=== PATIENT | female | born 1980 | race Caucasian/White ===

== ENCOUNTER → 2018-02-03 09:10 | Outpatient (CLI) | payer BC, SELFPAY ==
[2018-02-03 12:26] LABS: HIV - WCH Non-Reactive (Nonreactive)
[2018-02-03 13:02] LABS: Chlamydia Trachomatis by PCR Negative (Negative); Neisserai gonorrhoeae by PCR Negative (Negative); Probe Check PASS; Sample Adequacy Control PASS; Specimen Processing Control PASS
[2018-02-04 10:56] LABS: HEPATITIS B SURFACE AG Negative (Negative); Hep C Antibodies <0.1 s/co ratio (0.0-0.9)
[2018-02-07 12:21] LABS: HPV Reflexed? NOT INDICATED
[2018-02-10 01:20] LABS: Rapid Plasmin Reagin (RPR) NONREACTIVE (NONREACTIVE)
== END ==
PROVIDERS: Visit Provider Obstetrics & Gynecology
DX: Z12.4 Encounter for screening for malignant neoplasm of cervix (principal); Z11.3 Encounter for screening for infections with a predominantly sexual mode of transmission
CPT/HCPCS: 36415; 86592; 86703; 86803; 87340; 87491; 87591; 88175; G0145

== ENCOUNTER 2018-04-12 10:53 | Day surgery (SDC) | payer BC, SELFPAY ==
[2018-04-12 11:33] VITALS: BP 112/67; PULSE 85; RESP 18; TEMP 36.6; O2SAT 100; BMI 25.5
[2018-04-12 11:43] LABS: Internal QC Validated? YES +Cl - CLEAR BKGD; Pregnancy, Urine Negative Negative
--- NOTE | 2018-04-12 12:21 | PCM.DC.TUB ---
Discharge Diet: No Restrictions Discharge Activity: May not drive while taking narcotic pain medications., May Shower, May Take a Tub Bath Return to work on:: 04/14/18 May resume sexual activity in: 1 week Additional Activity Instructions:: Ambulate often the next week after surgery. Nothing in the vagina for 5 days. Call your doctor if you observe: Fever of 101 or Higher, Change in Color, Uncontrolled pain Change Dressing in (Days):: 4 Remove Dressing in (days):: 4 Cleanse incision/area with: Soap & Water, Keep Dressing Clean & Dry Additional Instructions: You may take two Aleve OR three Ibuprofen every 8 hr as needed for milder pain. Add the [place] if pain more severe. do not take tylenol in addition to the [place] (contains tylenol). Allergies/Adverse Reactions: Allergies adhesive tape Adverse Reaction (Verified 04/05/18 09:59) redness Medications to take at Discharge Biotin 2,500 mcg PO DAILY 04/05/18 Multivit with Calcium,Iron,Min [Multiple Vitamins For Women] 1 each PO DAILY 04/05/18 Hydrocodone/Acetaminophen [[place] 5-325 Tablet] 1 each PO Q4H PRN PRN 3 Days #10 tablet 04/12/18 The following prescriptions were given: Hydrocodone/Acetaminophen [[place] 5-325 Tablet] 1 each PO Q4H PRN PRN 3 Days #10 tablet PRN Reason: Mod-Severe Pain (4-10/10) Primary Care Physician: Cynthia Stroud MD [Primary Care Provider] - Test Results: Test results from this visit will be discussed in further detail at your follow-up appointment, if applicable. Please Follow Up With: Ginger Monroy MD - [phone] When: follow up appt in office in 2 wk for postop incision check. Proposed Discharge Date: 04/12/18
--- NOTE | 2018-04-12 12:27 | DCINST_ITS ---
Discharge Diet: No Restrictions Discharge Activity: May not drive while taking narcotic pain medications., May Shower, May Take a Tub Bath Return to work on:: 04/14/18 May resume sexual activity in: 1 week Additional Activity Instructions:: Ambulate often the next week after surgery. Nothing in the vagina for 5 days. Call your doctor if you observe: Fever of 101 or Higher, Change in Color, Uncontrolled pain Change Dressing in (Days):: 4 Remove Dressing in (days):: 4 Cleanse incision/area with: Soap & Water, Keep Dressing Clean & Dry Additional Instructions: You may take two Aleve OR three Ibuprofen every 8 hr as needed for milder pain. Add the [place] if pain more severe. do not take tylenol in addition to the [place] (contains tylenol). Allergies/Adverse Reactions: Allergies adhesive tape Adverse Reaction (Verified 04/05/18 09:59) redness Medications to take at Discharge Biotin 2,500 mcg PO DAILY 04/05/18 Multivit with Calcium,Iron,Min [Multiple Vitamins For Women] 1 each PO DAILY Hydrocodone/Acetaminophen [[place] 5-325 Tablet] 1 each PO Q4H PRN PRN 3 Days #10 tablet 04/12/18 The following prescriptions were given: Hydrocodone/Acetaminophen [[place] 5-325 Tablet] 1 each PO Q4H PRN PRN 3 Days #10 tablet PRN Reason: Mod-Severe Pain (4-10/10) Primary Care Physician: Cynthia Stroud MD [Primary Care Provider] - Test Results: Test results from this visit will be discussed in further detail at your follow- up appointment, if applicable. Please Follow Up With: Ginger Monroy MD - [phone] When: follow up appt in office in 2 wk for postop incision check. Proposed Discharge Date: 04/12/18
--- NOTE | 2018-04-12 12:30 | FALS_PTH ---
PATIENT: MARTHA GOMEZ LOC: [facility] [place] U#:[id number] AGE/SX: 37/F ROOM: RE04/12/[address]: Dr. Ginger Monroy MD : 1980 BED: DIS: 04/12/2018 SPEC #: [id number] RECD: 04/12/18 14:00 STATUS: HOWARD FERNANDO #: [id number] ROBINSON: 04/12/18 12:[address]: Ginger Monroy DEPT: SURGICAL PATHOLOGY RECD BY: Rebecca Lam ENTERED: 04/12/18 15:07 SP TYPE: FALL TUBES OTHR DR: Dr. Cynthia Stroud MD Tissues: Fallopian tube Procedures: Surgery Specimen Level II HEADER OPERATION: Laparoscopic salpingectomy PRE-OP DIAGNOSIS: Desires elective sterilization TISSUE SUBMITTED: Bilateral fallopian tubes MICROSCOPIC DIAGNOSIS Bilateral fallopian tubes, salpingectomy: Bilateral fallopian tubes including fimbrial ends, no pathologic diagnosis. SJ:saul 04/13/18 MICROSCOPIC DESCRIPTION Slides are reviewed. GROSS DESCRIPTION Received is one container labeled with the patient's name and designated bilateral fallopian tubes. The specimen consists of fallopian tubes including fimbrial ends measuring 6.5 cm in length and 0.6 cm in diameter. Sections reveal unremarkable cut surfaces. Also present in the container are multiple pieces of tubular tissue including fimbrial ends. One of the pieces measure 2 cm in length and 0.6 cm in diameter. The other pieces including fimbrial end measures in aggregate 3.5 x 2.5 x 0.8 cm. Sections reveal unremarkable cut surfaces. Air Pumper sections are submitted in two cassettes as follows: 1 ? intact fallopian tube, 2 ? fallopian tube received in multiple pieces. / VICENTE:saul 04/12/18 TC:4 [facility]: [id number] x2
[2018-04-12] MEDS: Bupiv/Epi 0.5% Mpf 30 ML Vial (12:39)
--- NOTE | 2018-04-12 13:25 | OP.PCM_ITS ---
Operative Report Date of Procedure: 04/12/18 Date of procedure: 04/12/18 PROCEDURE: Laparoscopic Bilateral Salpingectomy PREOPERATIVE DIAGNOSIS: Sterilization request POSTOPERATIVE diagnosis: Sterilization request Likely fibroid uterus intraabdominal adhesions (filmy) in RLQ. Normal appearing appendix Spots of endometriosis in posterior cul de sac, L ovary. (mild case, minimal adhesions) Surgeon: Ginger Monroy MD Anesthesia: general anesthesia. Jayna Bee CRNA EBL: minimal Complications: None Drains: Red Cast catheter used to drain the bladder prior to initiation of the case Fluids: LR replacement Findings; Globular appearing uterus suggestive of leiomyomata. Fallopian tubes and ovaries are WNL. Filmy adhesions at anterior cul de sac to the R side. (prior C section) Spots of dark powder burn appearing likely endometriosis noted at posterior cul de sac. Spots of likely endometriosis also noted at L ovary. Gross inspection of bowel, omentum. liver edge also WNL. photos were taken of the uterus and ovaries after Bilateral salpingectomy , and of the RUQ / liver edge, Filmy adhesions in RLQ. Appendix. Narrative account: After the risks, benefits, alternatives of procedure had been reviewed with the patient, informed consent was obtained. The patient was taken back to the Operating room with an IV running. she was positioned on the operating table in dorsal supine position, where she was given general anesthesia. Once asleep she was repositioned to the dorsal lithotomy position and prepped and draped in the usual sterile fashion. A red Cast catheter was used to drain the bladder prior to initiating the case. A sponge stick was placed into the vagina to allow manipulation of the uterus and cervix during the case. Attention was then turned to the anterior abdominal wall where 0.25 % Marcaine with epinephrine was instilled at the suprapubic and infraumbilical skin and at a point midway between in the midline. Skin incisions were then created in the midline at the suprapubic skin and at the infraumbilical skin and midway between the two. While maintaining upward traction of the anterior abdominal wall a Veress needle was inserted through the umbilical incision into the peritoneal cavity. There was free drop of saline, low opening pressure and free flow of CO2 noted. Once the intraabdominal pressure had reached 12 mm of mercury the Veress needle was removed and a bladeless 5 mm trocar was placed through infraumbilical skin incision into the peritoneal cavity. Correct placement was confirmed using the scope. Under direct visualization then with the patient in Trendelenburg position, a bladeless 5 mm trocar was inserted in through suprapubic skin incision into the peritoneal cavity and at a point midway between the infraumbilical and suprapubic trocars. The uterus as anteverted and both ovaries and fallopian tubes were WNL. Spots of likely endometriosis were noted at the L ovary and at the posterior cul de sac. The uterus was globular in configuration and firm, likely fibroid uterus. The R fallopian tube was grasped and retracted medially and using a LigaSure device the fallopian tube was excised from the ovary and mesosalpinx. Excellent hemostasis was noted at the excision site. The R fallopian tube was brought through the suprapubic trocar and set aside for later pathology review. In a similar manner the L fallopian tube was grasped and retracted medially and the fallopian tube was excised and removed from the abdominal cavity through the suprapubic trochar. The L fallopian tube was enlarged and brought out in pieces with a grasper with teeth. The Fallopian tubes were sent to pathology. Excellent hemostasis was noted by visualization of the pelvis, ovaries, and remaining mesosalpinx. There was some old blood noted in the L adnexa after the fallopian tube was removed in segments through the suprapubic port. The pelvic and abdomen were suction irrigated, and excellent hemostasis was noted. Photos were taken of the uterus and Bilateral remaining ovaries and of the RUQ and liver edge. the posterior cul de sac, L ovarian endometriosis, and filmy adhesions in the RLQ. Appendix was visualized. At this point the the procedure was terminated. The pneumoperitoneum was reduced and the instruments and trocars were removed from he the anterior abdominal wall skin. The skin incisions were closed with 4-0 Monocryl in a subcuticular fashion. Dermabond and OpSites were applied to the skin. The sponge stick was removed from the vagina. The patient was returned to dorsal supine position. She was awakened from general anesthesia. She was transferred to the recovery room bed in stable condition after tolerating the procedure well. Sponge, lap, needle and instrument counts were correct x two. Medications given preop and intraoperatively included: 10cc of 1/2 % Marcaine with epinephrine --used as a subcutaneous block and Toradol 30 mg IV x one. For a complete listing of medications given preop and intraop , please see the anesthesia record.
[2018-04-12 13:26] VITALS: BP 112/67; BP 114/71; PULSE 104; RESP 16; TEMP 36.8; O2SAT 98
[2018-04-12 13:30] VITALS: BP 110/69; BP 112/67; PULSE 92; RESP 16; O2SAT 100
[2018-04-12 13:45] VITALS: BP 109/67; BP 112/67; PULSE 82; RESP 16; TEMP 36.6; O2SAT 99
[2018-04-12] MEDS: HYDROcodone Bitartrate/Apap 5/325 Tablet PO (14:14)
[2018-04-12 15:08] VITALS: BP 103/76; BP 112/67; PULSE 74; RESP 16; TEMP 37.1; O2SAT 100
== END 2018-04-12 15:09 | disposition home or self-care (01) ==
LOC: SDC 10:56 → AC 10:57
PROVIDERS: Surgery; Family Provider Family Medicine; PCP Family Medicine; Visit Provider Obstetrics & Gynecology
PROC: (CPT 58661; principal; 2018-04-12 12:15)
DX: Z30.2 Encounter for sterilization (principal); K66.0 Peritoneal adhesions (postprocedural) (postinfection); N80.3 Endometriosis of pelvic peritoneum; N80.1 Endometriosis of ovary; Z87.891 Personal history of nicotine dependence
CPT/HCPCS: 58661; 81025; 88302; J7120; J2405

== ENCOUNTER → 2018-05-10 16:56 | Outpatient (CLI) | payer BC, SELFPAY | PROVIDERS: Visit Provider Obstetrics & Gynecology | DX: Z11.3 Encounter for screening for infections with a predominantly sexual mode of transmission (principal) ==

== ENCOUNTER → 2018-06-06 07:52 | Outpatient (CLI) | payer BC, SELFPAY ==
--- NOTE | 2018-06-06 07:54 | BI_ITS ---
MAMMOGRAPHY - BILATERAL SCREENING REASON FOR EXAM: Female, 37 years old. Routine annual screening examination. PERTINENT HISTORY: Mother with breast cancer. Grandmother with breast cancer. TECHNIQUE: Digital bilateral breast chandrika (3D mammographic acquisition) in the CC and MLO projections. 2-D mediolateral oblique (MLO) and craniocaudad (CC) views of both breasts were obtained. CAD: Full Field Digital Mammography with Computer Added Detection was performed. COMPARISON: None. Baseline examination. FINDINGS: Breast Composition: The breasts are heterogeneously dense, which may obscure small masses. There are no dominant masses or suspicious calcifications. No other significant abnormalities are identified. BI/SCREENING MAMM (CAD), BILAT IMPRESSION: Negative screening mammogram. Yearly followup mammogram recommended. (A) ASSESSMENT CATEGORY: BIRADS Category 1: Negative. A letter regarding these results will be sent to the patient by the facility within 30 days. Approximately 10% of breast cancers are not detected by mammography. A normal mammogram should not delay biopsy of a clinically suspicious abnormality. [id number] Electronically Signed: Hans Malave MD at 9:28 EDT Tel [phone], Service support ,
== END ==
PROVIDERS: Family Provider Family Medicine; PCP Family Medicine; Visit Provider Obstetrics & Gynecology
DX: Z12.31 Encounter for screening mammogram for malignant neoplasm of breast (principal)
CPT/HCPCS: 77063; 77067

== ENCOUNTER 2019-04-02 11:30 | Outpatient (RCR) | payer BC, SELFPAY ==
--- NOTE | 2019-03-21 09:22 | HP.OTEVAL ---
Patient's Visit Information MARTHA GOMEZ is a 38 year old F, referred to Occupational Therapy by Brice Gonzalez MD, with a diagnosis of right CTR. Date of Evaluation: 03/21/19 Occupational Therapist: Jaja Elizalde, RICHELLE/Adriana, CHT - Subjective Subjective: This 38 year old female was seen for initial OT eval following a CTR on 03/08/19. pt works at [employer] and states she has had symptoms on and off for about 6 years. pt states she was noticed weakness and was waking up many times a night with numbness/tingling. Pt is 2 weeks s/p and would like to know how she can progress to perform her ADLs and home mtg. tasks without risking the release. - Pain right hand 2 Pain Intensity Range: 4 - ROM Wrist: right 75/60 left 70/75 - Strength Aircraft Engine Cylinder Mechanic: right 25# left 65# Lateral Pinch: right 10 left 12 Tripod Pinch: right 10# left 18# - Sensation Sensation Comments: denies - Quick DASH-Disab of Arm,Shoulder& Hand Quick DASH Score: 18.3325 - Goals Goal:Daily scar massage when approriate: Yes Goal:ROM equal to unaffected hand: Yes Goal:Aircraft Engine Cylinder Mechanic/Pinch strength at least 75% of unaffected hand: Yes Goal:No pain with affected hand use: Yes Goal:Full use of affected hand in daily activities including: Yes Goal:Decrease scar hypersensitivity: Yes - Rehabilitation General Assessment: Pt is 2 weeks s/p from right CTR. pt demo with healing incision, pain and weakness limiting pts ind. with ADLS, IADls and work tasks. PT would benefit in skilled OT services 2-3 visits to ensure ed. and tx of ROM, scar mtg, joint protection, work simplification and PRE. Today pt was ed.on tendon glides, wrist AROM, scar mtg and light returning to light home mtg. tasks. pt to return in 1 - 2 weeks to intiate PRE for HEP pt demo understanding and agree to POC. Rehabilitation Potential: Good - Anticipated Interventions Anticipated Interventions: A/AAROM/PROM, Strengthening, Scar Care, Triggerpoint Release, Desensitization, Modalities, Joint Protection/Energy Conservation, Ergonomic Education, Fine Motor Coord/Seb - Visit Plan Frequency: 1x/Week Duration: 2 Weeks TEXT: Thank you for the opportunity to evaluate your patient. For Medicare and Medicare HMO plans, please review the plan of care and approve it. It will need to be FAXED BACK to us at [phone] for Medicare purposes. Please let me know if there are questions or concerns regarding this plan of care. Physician Signature: Date:
--- NOTE | 2019-08-08 19:04 | HP.OTDCSUM ---
HP - OT D/C Summary It has been my pleasure to treat MARTHA GOMEZ under orders from Brice Gonzalez MD, for the diagnosis of right CTR for a total of 2 visit(s). Please see the following information for a summary of their discharge status. - Objective Objective/Function: right traffic i manager strength 43#. right later pinch 14#. right tripod pinch 12# - Goals Patient Goals: Regain Mobility, Regain Strength, Decrease Pain, Use Hand/Wrist/Arm Normally Again Goal:Daily scar massage when approriate: Yes Goal:ROM equal to unaffected hand: Yes Goal:Instrumentation Fitter/Pinch strength at least 75% of unaffected hand: Yes Goal:No pain with affected hand use: Yes Goal:Full use of affected hand in daily activities including: Yes Goal:Decrease scar hypersensitivity: Yes - D/C Information If there are questions or concerns regarding this patient's occupational therapy, please fell free to call me at [phone]. Thank you for the referral of this patient. Sincerely, Jaja Elizalde, OTR/L, CHT
== END 2019-04-02 19:00 | disposition home or self-care (01) ==
LOC: OT 11:30
PROVIDERS: Family Provider Family Medicine; PCP Family Medicine; Referring Provider Orthopaedic Surgery; Visit Provider Orthopaedic Surgery
DX: G56.01 Carpal tunnel syndrome, right upper limb (principal)
CPT/HCPCS: 97035; 97110; 97140; 97165

== ENCOUNTER → 2019-05-02 09:48 | Outpatient (CLI) | payer BC, SELFPAY ==
--- NOTE | 2019-05-02 09:50 | RAD_ITS ---
STUDY: X-RAY - THORACIC SPINE REASON FOR EXAM: Female, 38 years old. Back pain TECHNIQUE: 3 view(s) of the thoracic spine were obtained. COMPARISON: None. FINDINGS: Normal kyphosis of the thoracic spine. There is mild levo scoliosis. Normal thoracic vertebrae and endplates. Normal disc space heights. The soft tissue structures are unremarkable. RAD/Thoracic Spine 3 Views IMPRESSION: Mild levoscoliosis or splinting possibly due to muscle spasm. No evidence for acute fracture or other significant bony pathology. Electronically Signed: Emil Teague MD at 17:17 EDT , Service support ,
== END ==
PROVIDERS: Family Provider Family Medicine; PCP Family Medicine; Referring Provider Family Medicine; Visit Provider Family Medicine
DX: M54.6 Pain in thoracic spine (principal)
CPT/HCPCS: 72072

== ENCOUNTER 2019-06-07 11:30 | Outpatient (RCR) | payer BC, SELFPAY ==
--- NOTE | 2019-05-15 12:10 | HP.PTEVAL_ITS ---
Patient's Visit Information MARTHA GOMEZ is a 38 year old F referred to Physical Therapy by Cynthia Stroud MD with a diagnosis of BACK PAIN. Date of Evaluation: 05/15/19 Physical Therapist: Angie Swift, PT, Cert MDT - Visit Plan Frequency: 2x /Week Duration: 6 Weeks Plan: MANUAL AND/OR MECHANICAL CERVCIAL TRACTION INDICATED. POSTURE CORRECTION/STRENGTHENING, INSTRUCTION IN APPROPRIATE BODY MECHANICS AND ACTIVITY MODIFICATIONS. LILIANE UE ROM, STRETCHING AND STRENGTHENING. INCORPORATE FOAM ROLLER. HEP INSTRUCTION. 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 LIKES TO DO YARDWORK AND GARDENING. Disability: NO. Present symptoms: CONSTANT THORACIC BACK PAIN AND BURNING WITH INTERMITTENT PINS AND NEEDS AT THE BASE OF NECK. Present since: ABOUT 10 YEARS. Pain Scale: WORST 9/10, LEAST 1/10. Currently: 3/10. WORSENING. Commenced as a result of: NO APPARENT REASON. Symptoms at onset: ? Worse: I DON'T KNOW. Better: FOAM ROLLING HELPS A LITTLE BIT VERY TEMPRARY. IBUPROFEN A LITTLE BIT. SOMETIMES 10 IBUPROFEN DO NOT HELP. Disturbed sleep: YES. Previous history/Previous treatment: CHIRO X 4 VIITS - NO LASTING RELIEF. NO TIERNEY'S. NO BACK OR NECK SURGERY. NO PT FOR BACK OR NECK. MUSCLE RELAXERS. HAS BEEN DOING MASSAGE THERAPY ABOUT ONCE A MONTH FOR ABOUT A YEAR NOW. Coughing/sneezing/straining: NEGATIVE. Gait: NORMAL. DiZZINESS - NEGATIVE. TINNITIS - NEGATIVE. NAUSEA - YES. SHORTNESS OF BREATH - NO. DIFFICULTY SWOLLOWING - NO. Accidents: NO. Unexplained weight loss: NO. Imaging: BACK X-RAY - NORMAL. PMH: UNREMARKABLE. Recent major surgery: CTS FEBRUARY 2019 RIGHT. OTHER: PATIENT REPORTS DR. STROUD THINKS HER PAIN IS MUSCULAR. PATIENT REPORTS SHE IS ACTIVE. 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 DOESN'T SIT A LOT OUTSIDE OF WORK. CAN'T FIND A PATTERN TO THE PAIN. PATIENT REPORTS THE PAIN DOESN'T USUALLY STOP HER FROM DOING ANYTHING BUT THE PAIN DOES GET BAD. - Objective Sitting/Standing Posture: POOR. FORWARD HEAD AND ROUNDED SHOULDERS. NO TORTICOLLIS. Active Correction of posture: NE. Other Observations: INDEP GAIT AND TRANSFERS. SLOUCHING THROUGHOUT SUBJECT PORTION OF EVAL. Motor deficit: RIGHT FORKLIFT SUPERVISOR 45 LBS, LEFT 55 LBS. Sensory deficit: NO. ROM deficit: LILIANE UE'S WFL. Reflexes: NT. Dural Signs: LILIANE UE'S NEGATIVE. Cervical Mvmt Loss: Flex: NIL. Pro: NIL. Ext: MIN. Ret: MIN. RSB: MIN. LSB: MIN. R Rot: MIN. L Rot: MIN. THORACIC MVMT LOSS: RIGHT ROT - MIN. LEFT ROT - MIN. PATIENT REPORTS INCREASED MID BACK PAIN WITH LILIANE THORACI ROTATION TESTING AND REPORTS THIS IS THE AREA WHERE THE PAIN IS THAT SHE IS HERE FOR TODAY. PATIENT REPORTS INCREASED RIGHT NECK TIGHTNESS WITH RIGHT ROTATION AND LEFT SB. Postural strength: POOR. Palpation: PATIENT HAS INCREASED MUSCLE TONE LILIANE TRAP REGIONS WITH MULTIPLE TRIGGER POINTS RIGHT > LEFT. NO ACUTE CERVICAL OR THORACIC SPINAL TENDERNESS. OTHER: SEATED CERVICAL DISTRACTION TESTING RESULTS IN DECREASED PAIN. - Goals Goal 1:: DECREASE C/O NECK AND MID BACK PAIN Goal Time Frame: 4-6 Weeks Goal 2:: IMPROVE STANDING, TRAVEL, WORK, HOMEMAKING AND SLEEP FUNCTION Goal Time Frame: 4-6 Weeks Goal 3:: INSTRUCT IN PROPHYLAXIS Goal Time Frame: 4-6 Weeks - Rehabilitation Potential Rehabilitation Potential: Fair - Anticipated Interventions Patient/Client Instruction: Educate patient on: Condition, Plan of Care, Risk Factors, Benefits of Fitness Program For the Purpose of:: To improve self management Therapeutic Exercise to Include: Strength training, Body mechanics, Postural training, Flexibilty training, Scapular Strength/Stabilization For the Purpose of:: To decrease pain, To increase ROM, To improve muscle performance and motor function, To increase tolerance to activity/condition/position, To improve ability of physical actions for home/com munity/work/leisure Manual Therapy Techniques to Include: Soft tissue mobilization For the Purpose of:: To decrease pain, To increase ROM, To improve nutrient delivery to tissue TENS: Yes IF ES: Yes Cryotherapy (ice pack, ice massage): Yes Thermo therapy (hot pack): Yes Ultrasound (thermal/non thermal): Yes Intermittent cervical traction: Yes For the Purpose of:: To decrease pain, To decrease swelling/inflammation, To increase ROM Thank you for the opportunity to evaluate your patient. For Medicare and Medicare HMO plans, please review the plan of care and approve it. It will need to be FAXED BACK to us at [phone] for Medicare purposes. For Medicare only, by signing this I certify the plan of care. Please let me know if there are questions or concerns regarding this plan of care. Physician Signature: Date:
--- NOTE | 2019-06-18 10:46 | HP.PT.NRP ---
HP - Discharge Summary (1) - Patient Information MARTHA GOMEZ was seen in my office for initial evaluation on 05/15/19. The following Plan of Care was established for this patient: Initial Frequency: 2x /Week Initial Duration: 6 Weeks - Anticipated Interventions Patient/Client Instruction: Educate patient on: Condition, Plan of Care, Risk Factors, Benefits of Fitness Program For the Purpose of:: To improve self management Therapeutic Exercise to Include: Strength training, Body mechanics, Postural training, Flexibilty training, Scapular Strength/Stabilization For the Purpose of:: To decrease pain, To increase ROM, To improve muscle performance and motor function, To increase tolerance to activity/condition/position, To improve ability of physical actions for home/community/work/leisure Manual Therapy Techniques to Include: Soft tissue mobilization For the Purpose of:: To decrease pain, To increase ROM, To improve nutrient delivery to tissue TENS: Yes IF ES: Yes Cryotherapy (ice pack, ice massage): Yes Thermo therapy (hot pack): Yes Ultrasound (thermal/non thermal): Yes Intermittent cervical traction: Yes For the Purpose of:: To decrease pain, To decrease swelling/inflammation, To increase ROM This patient was last seen in our office . Pertinent comments regarding their Physical therapy will appear below: I received a note stating patient cancelled all remaining edison'ts because she is doing good. She is appropriate to return to MD for further follow-up as needed. At this point I will be discontinuing this patient from physical therapy. I would be happy to see this patient again in the future if found appropriate by the physician. Thank you! Angie Swift, PT, Cert MDT
== END 2019-06-07 19:00 | disposition home or self-care (01) ==
LOC: PT 11:30
PROVIDERS: Family Provider Family Medicine; PCP Family Medicine; Referring Provider Family Medicine; Visit Provider Family Medicine
DX: M54.6 Pain in thoracic spine (principal)
CPT/HCPCS: 97035; 97110; 97161; 97530

== ENCOUNTER → 2019-11-24 08:35 | Outpatient (CLI) | payer BC, SELFPAY ==
--- NOTE | 2019-11-24 09:11 | US_ITS ---
HISTORY: EARLY SATIETY TECHNIQUE: Cruz scale and color doppler imaging was performed of the pancreas, liver, and gallbladder. COMPARISON: None FINDINGS: # of images incl. paperwork: 119 Liver is normal in size and appearance. Multiple gallstones are present within the gallbladder lumen. The gallbladder is filled with gallstones making a wall echo shadow triad. Where the gallbladder wall was measured at 11 mm was a fold. My measurement of the gallbladder wall thickness is 4 mm Gallbladder wall measures by the reinspector at 11 mm. Common bile duct measures 6 mm. Upon insonation of the gallbladder the patient did not experience pain Visualized pancreas is normal in appearance. Right kidney is normal in size and appearance. Visualized abdominal aorta has normal caliber. IVC is patent. Hepatopedal flow is present within the central portal vein. US/Abdomen Limited IMPRESSION: Gallbladder filled with gallstones. Gallbladder wall thickening. Findings are consistent with but not specific for, acute cholecystitis. at [id number] Reported and signed by: Kike Smith MD Electronically Signed: Kike Smith MD at 6:07 EDT Tel , Service support ,
== END ==
PROVIDERS: PCP Family Medicine; Referring Provider Family Medicine; Visit Provider Family Medicine
DX: R68.81 Early satiety (principal)
CPT/HCPCS: 76705

== ENCOUNTER → 2019-11-27 13:51 | Outpatient (CLI) | payer BC, SELFPAY ==
[2019-11-27 13:31] VITALS: BMI 25.2
[2019-11-27 14:20] LABS: Absolute Lymphocyte Count 1.16 X10^3/uL (0.83-4.51); Absolute Neutrophil Count 5.6 X10^3/uL (2.0-7.7); Basophil# 0.02 X10^3/uL; Basophil% 0.3 % (0-1); Eosinophil# 0.09 X10^3/uL; Eosinophils% 1.2 % (0-5); Hematocrit 41.1 % (37-47); Lymphocyte # 1.16 X10^3/ul (4.0); Lymphocyte % 15.8 % (19-41); Mean Corp Hgb Conc 34.1 g/dL (32-36); Mean Corpuscular Hgb 30.8 pg (27.0-32.0); Mean Corpuscular Volume 90.5 fL (81-99); Monocyte# 0.51 X10^3/uL; Monocyte% 6.9 % (0-10); NRBC Flagged by Analyzer 0 % (0-5); Neutrophil # 5.56 X10^3/uL (2.7-7.7); Neutrophil % 75.5 % (47-70); Platelet Count 220 K/mm3 (150-450); RBC Distribution Width CV 11.6 % (11.6-14.6); RBC Distribution Width SD 38.5 fl (35.1-43.9); Red Blood Count 4.54 M/mm3 (4.2-5.4); White Blood Count 7.4 K/mm3 (4.4-11.0)
[2019-11-27 14:37] LABS: AST(SGOT) 14 U/L (15-37); Alanine Aminotransfer ALT/SGPT 19 U/L (13-56); Albumin, Serum 3.7 g/dL (3.2-5.0); Alkaline Phosphatase 63 U/L (45-117); Anion Gap 4 (5-15); BUN 11 mg/dL (7-18); BUN/Creat Ratio 18.9 RATIO (10-20); Calcium,Total 8.4 mg/dL (8.5-10.1); Chloride 108 mmol/L (98-107); Creatinine, Serum 0.58 mg/dL (0.55-1.02); EST Glomerular Filtration Rate 122 mL/min (>60); Est Glom Filt Rate - Afr Amer 148 mL/min (>60); Globulin 3.7 g/dL (2.2-4.2); Glucose 108 mg/dL (74-106); Potassium 3.8 mmol/L (3.5-5.1); Protein, Total 7.4 g/dL (6.4-8.2); Sodium Level 141 mmol/L (136-145)
== END ==
PROVIDERS: PCP Family Medicine; Referring Provider Surgery; Visit Provider Surgery
DX: K80.20 Calculus of gallbladder without cholecystitis without obstruction (principal)
CPT/HCPCS: 36415; 80053; 85025

== ENCOUNTER → 2020-05-21 11:55 | Outpatient (CLI) | payer BC, SELFPAY ==
[2019-11-27 13:31] VITALS: BMI 25.2
[2020-05-13 13:42] VITALS: BMI 25.5
--- NOTE | 2020-05-21 11:57 | BI_ITS ---
MAMMOGRAPHY - BILATERAL SCREENING REASON FOR EXAM: Female, 39 years old. Routine annual screening examination. PERTINENT HISTORY: Mother with breast cancer. Grandmother with breast cancer. Aunt with breast cancer. TECHNIQUE: Digital bilateral breast gareth (3D mammographic acquisition) in the CC and MLO projections. 2-D mediolateral oblique (MLO) and craniocaudad (CC) views of both breasts were obtained. CAD: Full Field Digital Mammography with Computer Added Detection was performed. COMPARISON: Comparison is made with prior examination dated 06/06/2018. FINDINGS: Breast Composition: The breasts are heterogeneously dense, which may obscure small masses. There are no dominant masses or suspicious calcifications. No other significant abnormalities are identified. There has been no significant change since the prior study. BI/SCREEN MAMM (CAD) W/GARETH BILAT IMPRESSION: Stable bilateral screening mammogram. Yearly follow-up mammogram recommended. (A) ASSESSMENT CATEGORY: BIRADS Category 1: Negative. A letter regarding these results will be sent to the patient by the facility within 30 days. Approximately 10% of breast cancers are not detected by mammography. A normal mammogram should not delay biopsy of a clinically suspicious abnormality. [id number] Electronically Signed: Hans Malave, at 12:58 EDT , Service support ,
== END ==
PROVIDERS: PCP Family Medicine; Referring Provider Student in an Organized Health Care Education/Training Program; Visit Provider Student in an Organized Health Care Education/Training Program
DX: Z12.31 Encounter for screening mammogram for malignant neoplasm of breast (principal); Z80.3 Family history of malignant neoplasm of breast
CPT/HCPCS: 77063; 77067

== ENCOUNTER 2020-05-23 07:53 | Day surgery (SDC) | payer BC, SELFPAY ==
--- NOTE | 2020-05-13 02:09 | HP_ITS ---
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: No Is patient in pain?: Yes (abdominal pain) Allergies azithromycin [From Zithromax Z-Michael] Allergy (Unknown, Verified 05/13/20 13:39) Unknown chromium Allergy (Unknown, Verified 05/13/20 13:39) Unknown sulfamethoxazole [From Bactrim] Allergy (Unknown, Verified 05/13/20 13:39) Unknown trimethoprim [From Bactrim] Allergy (Unknown, Verified 05/13/20 13:39) Unknown adhesive tape Adverse Reaction (Verified 05/13/20 13:39) redness Medications amoxicillin 500 mg capsule 500 mg PO .prn cap 05/13/20 [History Confirmed 05/13/20] biotin 1 mg capsule 1 mg PO DAILY 05/13/20 [History Confirmed 05/13/20] ibuprofen 200 mg capsule 200 mg PO Q6H PRN 05/13/20 [History Confirmed 05/13/20] multivitamin 1 tab PO DAILY 05/13/20 [History Confirmed 05/13/20] PFSH Medical History Nausea (Acute) Epigastric abdominal pain (Acute) Hemorrhoids (Acute) Anemia (Acute) Bloating (Acute) Abdominal pain (Acute) Heart murmur (Acute) Surgical History Hx of wisdom tooth extraction (Acute) History of (Acute) Hx of bilateral salpingectomy (Acute) Family History Mother Breast cancer Hypertension Social History (Updated 05/13/20 @ 14:[address] Perico Harris MD) Smoking Status: Former smoker second hand exposure: No alcohol intake: never substance use type: does not use caffeine: Yes what type of physical activity do you participate in: none frequency: does not exercise HPI HPI HPI: MARTHA GOMEZ, is a 39 F who presents to the office today for HPI HPI Surgical H&P: Yes HPI: MARTHA GOMEZ, is a 39 F who presents to the office today for abdominal pain. The patient has abdominal pain in her upper abdomen radiating to the back. She also feels ill after eating certain foods. She had her gallbladder evaluated back in November but did not have surgery at that time due to social reasons. The patient had gallstones at that time. Patient is not having any fevers or chills. Patient has no pain in between meals. Patient does not have any radiation of pain. There are no alleviating factors. ROS General General: Yes appetite (decreased); no weight change Gastro Gastrointestinal: Yes abdominal pain, Yes nausea or vomiting (no vomiting), No diarrhea, No constipation (hx of --goes about QOD now), No blood in stool, No acid reflux, Yes hemorrhoids, No ulcers, Yes gallbladder problem, No black,tarry stools Exam Const General: cooperative Orientation: alert, oriented x3 HENMT Head: normal to inspection Ears: hearing grossly normal bilaterally Eyes General: appearance normal, both eyes and all related structures Visual Higginbotham: normal visual higginbotham by confrontation Neck Neck: normal visual inspection Chest Chest palpation & inspection: normal inspection of the chest Resp Effort & Inspection: normal respiratory effort Auscultation: clear to auscultation bilaterally Cardio Rate: regular rate Rhythm: regular rhythm GI Inspection: non-distended Palpation: soft, nontender Musc Cervical Spine: normal cervical lordosis, cervical ROM normal Skin General: no rashes or lesions noted Neuro General: alert, oriented x3 Cranial Nerves: CN's II-XI intact bilaterally Cognition: normal cognition Extrem General: normal to inspection, full ROM Psych Appearance: grossly normal Affect: normal affect Assessment & Plan Problems 1. Calculus of gallbladder without cholecystitis without obstruction K80.20 Plan The patient has upper abdominal pain radiating to the back. The patient has ultrasound which shows copious gallstones in the gallbladder. I recommended laparoscopic cholecystectomy to the patient. I discussed the procedure in detail with the patient. I discussed the risks, benefits, and alternatives of the procedure. I discussed the risks including but not limited to bleeding, infection, injury to surrounding organs such as the liver, bile duct, bowels. I did discuss the possibility of having to convert to an open procedure as well as the possibility that if any injuries occurred this may necessitate further surgery at a tertiary care center. We discussed the current risks associated with COVID-19. While it is understood that there is a community spread of COVID-19, the risk of liyah COVID-19 while at [facility] ([facility]) is very low; however, the risk cannot be completely mitigated because of the community spread of the disease. We discussed in detail the risk of exposure to and/or potential harm posed by the COVID-19 virus with having a surgery/procedure at this time versus the risk of delaying the surgery/procedure. It is not possible to know either the risk of delaying the surgery or procedure or chance of getting an infection with perfect accuracy, but a joint decision was made to proceed at this time with the scheduled surgery/procedure as indicated on the consent form. Patient was notified that we will need to comply with any screening or testing [facility] wishes to perform or that surgery may be delayed for any positive results. Perico Harris MD Pager: [facility] [address] [place] [address], [address] [place] [address] Office: Coding Level of Care Code Off vis,est,level 4 Diagnoses Calculus of gallbladder without cholecystitis without obstruction K80.20 ??Cholelithiasis location: gallbladder ??Cholecystitis presence: without cholecystitis ??Biliary obstruction: without biliary obstruction Time Spent (min) 45 05/13/20 1410 <Electronically signed by Perico meeks MD> Date _ Perico Harris MD I have re-examined the patient. There are no clinical changes since date of exam.
[2020-05-13 13:42] VITALS: BMI 25.5
--- NOTE | 2020-05-15 11:44 | EKG12_ITS ---
Test Reason : PREOP Blood Pressure : / mmHG Vent. Rate : 072 BPM Atrial Rate : 072 BPM P-R Int : 150 ms QRS Dur : 090 ms QT Int : 386 ms P-R-T Axes : 063 037 053 degrees QTc Int : 422 ms Normal sinus rhythm with sinus arrhythmia Normal ECG Confirmed by SANDOR LORENZ, WERO ([id number]), web editor ANNIE CHRISTIANSEN ([id number]) on 05/16/2020 11:37:12 A M Referred By: Perico Harris Confirmed By:RIGOBERTO PATTEN MD
[2020-05-23] VITALS (10 sets, daily range): BP systolic 102–137; BP diastolic 62–82; PULSE 79–103; RESP 14–16; TEMP 36.8–37.1; O2SAT 92–100; BMI 26.4
[2020-05-23] MEDS: Lactated Ringers 1,000 ML 100 ML IV ×2 (08:38→10:30)
[2020-05-23] MEDS: Cefotetan 2 GM in 0.9% NS 100 ML IV (09:12)
--- NOTE | 2020-05-23 09:30 | GALL_PTH ---
PATIENT: MARTHA GOMEZ [place] [facility] [id number] AGE/SX: 39/F ROOM: RE05/23/[address]: Dr. Perico Harris MD : 1980 BED: DIS: 05/23/2020 SPEC #: [id number] RECD: 05/23/20 12:12 STATUS: HOWARD FERNANDO #: [id number] ROBINSON: 05/23/20 09:[address]: Perico Harris DEPT: SURGICAL PATHOLOGY RECD BY: Kan Wan ENTERED: 05/23/20 13:02 SP TYPE: YUNIOR PONCE DR: Dr. Cynthia Stroud MD Tissues: Gallbladder, NOS Procedures: Surgery Specimen Level III HEADER OPERATION: Laparoscopic cholecystectomy with IOC PRE-OP DIAGNOSIS: Calculus of gallbladder TISSUE SUBMITTED: Gallbladder MICROSCOPIC DIAGNOSIS Gallbladder, cholecystectomy: Chronic cholecystitis and cholelithiasis. Benign pericystic lymph node. AM:saul 05/27/20 MICROSCOPIC DESCRIPTION Slides are reviewed. GROSS DESCRIPTION Received is one container labeled with the patient's name and designated gallbladder. The specimen consists of a previously, partially opened gallbladder measuring 10.5 cm in length and up to 3 cm in diameter. The external surface is pink-silva, smooth and glistening for the most part. Focally it is granular, hemorrhagic and contains cautery artifact. The gallbladder contains green-yellow mucoid bile. Present in the container and also in the gallbladder are multiple, multifaceted greenish-yellow to brown stones and stone fragments measuring in aggregate 7 x 7 x 2 cm and 0.1 to 2 cm in greatest dimension. The mucosa is bile-stained and without any mass lesions. The gallbladder wall measures up to 0.4 cm in thickness. Also present close to cystic duct is a silva-pink, ovoid nodule, a possible lymph node, measuring 0.8 cm in greatest dimension. Pipe Roller sections from the gallbladder and the cystic duct including the entire nodule, a possible lymph node, are submitted in one cassette. / SJ:saul 05/23/20 TC:3 CPT: 36450
--- NOTE | 2020-05-23 09:35 | RAD_ITS ---
STUDY: INTRAOPERATIVE CHOLANGIOGRAM. REASON FOR EXAM: Female, 39 years old. PAIN FLUOROSCOPY TIME (if supplied): ( 21.5 seconds ) minutes/seconds TECHNIQUE: Intraoperative collagen was performed by the surgeon. A cine loop of 126 images were submitted. COMPARISON: None. FINDINGS: The intrahepatic and extrahepatic biliary ducts are unremarkable. No intraluminal filling defect is seen. There is free flow of contrast into the duodenum. RAD/Cholangiogram/ O R,Initial IMPRESSION: Unremarkable intraoperative cholangiogram. Electronically Signed: Hans Malave, at 10:44 EDT , Service support ,
[2020-05-23] MEDS: Bupiv/Epi 0.25% 30 ML Vial (10:17)
--- NOTE | 2020-05-23 10:44 | PCM.OPRPT ---
Problem List (1) Cholelithiasis Status: Acute Qualifiers: Cholelithiasis location: gallbladder Cholecystitis presence: without cholecystitis Biliary obstruction: without biliary obstruction Qualified Code(s): K80.20 - Calculus of gallbladder without cholecystitis without obstruction Report of Operation Date of Procedure: 05/23/20 Pre-Operative Diagnosis: Cholelithiasis with biliary colic Post-Operative Diagnosis: Same Surgery/Procedure Performed:: Laparoscopic cholecystectomy with cholangiogram Specimen's removed: Gallbladder and contents Description of Procedure: After obtaining informed consent patient was brought back to the operating room. General anesthesia was induced. The abdomen was prepped and draped in usual sterile fashion. A small midline incision was made superior to the umbilicus and deepened to the level of fascia. The fascia was elevated and incised. Next the peritoneum was elevated and incised in the same fashion. Finger sweep was performed and the Avila trocar was placed into the abdomen. The balloon was inflated. The abdomen was inflated to 15 mmHg. Next a camera was introduced into the abdomen and the abdomen was inspected. Next under direct visualization three 5-mm ports were placed one subxiphoid and 2 subcostal. Next the gallbladder was elevated and retracted toward the right shoulder. The peritoneum was stripped from the gallbladder. The infundibulum was located and retracted laterally. Next the triangle of Calot was dissected and the cystic duct and cystic artery were identified. Cholangiograms were performed. The Barone clamp was used to clamp across the infundibulum and the catheter needle was inserted into the gallbladder. I was unable to get good flushing with the Barone catheter and the clamp was removed. Next a Ranfac catheter was selected and a small keyana was made in the skin in the right upper quadrant. The Ranfac catheter was placed into the abdomen. The proximal cystic duct was clipped and a small keyana was made the cystic duct. The catheter was then placed into the cystic duct and clip was placed over it. Under fluoroscopy contrast was instilled into the gallbladder and the common duct, cystic duct as well as proximal hepatic ducts were identified. There was good filling of the duodenum. There were no filling defects noted in the common bile duct. The cystic duct was very short. The clip was removed and the Ranfac catheter was removed from the cystic duct. Three hemolock clips were placed across the cystic duct. The cystic duct was then divided leaving 2 clips on the stump. The cystic artery was clipped and divided in the same fashion. The hook cautery was then used to take the gallbladder off of the gallbladder bed. Hemostasis was obtained. Gallbladder fossa was irrigated and no active bleeding or bile leakage was noted. Next the camera was introduced in the subxiphoid port. An Endopouch bag was placed through the umbilical port and the gallbladder was placed into it. The gallbladder was then removed through the umbilical incision. The camera was then reinserted through the umbilical port. The gallbladder fossa was inspected once more and noted to be hemostatic with no leaking bile. The abdomen was suctioned dry. The 5 mm ports were removed under direct visualization. The umbilical port was then removed and the air was removed from the abdomen. Next using an 0 Vicryl suture the umbilical fascia was closed in a ucrrcv-ox-motcy fashion. The umbilical port site was irrigated local anesthetic was administered to all the incisions. All the incisions were closed with interrupted subcuticular 4-0 Monocryl sutures followed by Steri-Strips and dressings. The patient was awoken and taken to PACU in stable condition. - Admit VTE Documentation VTE Mechan Device Prophylaxis: SCD's
--- NOTE | 2020-05-23 10:46 | DCINST_ITS ---
Discharge Diet: Light diet - advance as tolerated Discharge Activity: Return to Normal Activity, May Not Drive - for 2-3 days or while taking narcotic pain medicataions., - - Do not drive, work heavy equipment or sign legal documents for 24 hours. May shower in (days): 1 - with the bandage in place. Lifting Restrictions: 20 lbs for 2 weeks Additional Activity Instructions:: Pain medication may cause nausea. You should typically eat light foods as you take your pain medications. Pain medication may also cause constipation. If this is a problem for you, please discuss with your doctor. Call your doctor if your incision/area has: Continuous Slow Oozing, Sudden Increased Bleeding, Increased Pain/ Swelling, Increased Redness, Foul Smelling Discharge, Fever of 101 or Higher Call your doctor if you observe: Fever of 101 or Higher Suture Line Care: Avoid Pulling/Pushing, Avoid Pinching/Bending Additional Dressing/Incision Instructions:: Leave operative bandaids on for 2 days. When you remove dressing, leave Steri-Strips on until your follow-up appointment, or until the Steri-Strips fall off on their own. Allergies/Adverse Reactions: Allergies azithromycin [From Zithromax Z-Michael] Allergy (Unknown, Verified 05/23/20 08:15) Unknown chromium Allergy (Unknown, Verified 05/23/20 08:15) Unknown sulfamethoxazole [From Bactrim] Allergy (Unknown, Verified 05/23/20 08:15) Unknown trimethoprim [From Bactrim] Allergy (Unknown, Verified 05/23/20 08:15) Unknown adhesive tape Adverse Reaction (Verified 05/23/20 08:15) redness Medications to take at Discharge amoxicillin 500 mg capsule 500 mg PO .prn PRN cap 05/13/20 biotin 1 mg capsule 1 mg PO DAILY 05/13/20 ibuprofen 200 mg capsule 200 mg PO Q6H PRN 05/13/20 Oxycodone HCl/Acetaminophen [Percocet 5-325 mg Tablet] 1 - 2 tab PO Q6H PRN 5 Days #20 tablet 05/23/20 The following prescriptions were given: Oxycodone HCl/Acetaminophen [Percocet 5-325 mg Tablet] 1 - 2 tab PO Q6H PRN 5 Days #20 tablet PRN Reason: Pain Score 4-10/10 Transmission Status: Sent to [facility] Test Results: Test results from this visit will be discussed in further detail at your follow- up appointment, if applicable. Please Follow Up With: Perico Harris MD When: Please call to schedule 2 week follow up appointment. [phone]
== END 2020-05-23 14:05 | disposition home or self-care (01) ==
LOC: SDC 07:56 → AC 07:56
PROVIDERS: Anesthesiology; PCP Family Medicine; Referring Provider Surgery; Visit Provider Surgery
PROC: (CPT 47610; principal; 2020-05-23 09:10)
DX: K80.10 Calculus of gallbladder with chronic cholecystitis without obstruction (principal); Z11.59 Encounter for screening for other viral diseases; Z87.891 Personal history of nicotine dependence
CPT/HCPCS: 00790; 47563; 74300; 76000; 87635; 88304; 93005; 94799; J7120; J2405; U0003

== ENCOUNTER → 2021-01-05 | Outpatient (CLI) | payer OTHER, SELFPAY ==
[2020-05-23 08:18] VITALS: BMI 26.4
[2021-01-08 16:23] LABS: HPV APTIMA, High Risk Negative (Negative)
== END | disposition home or self-care (01) ==
PROVIDERS: PCP Family Medicine; Visit Provider Student in an Organized Health Care Education/Training Program
DX: Z12.4 Encounter for screening for malignant neoplasm of cervix (principal)
CPT/HCPCS: 87624; 88175; G0145

== ENCOUNTER → 2021-06-30 12:01 | Outpatient (CLI) | payer OTHER, SELFPAY ==
--- NOTE | 2021-06-30 12:12 | BI_ITS ---
MAMMOGRAPHY - BILATERAL SCREENING REASON FOR EXAM: Female, 40 years old. Routine annual screening examination. PERTINENT HISTORY: Mother with breast cancer. Grandmother with breast cancer. Aunt with breast cancer. TECHNIQUE: Digital bilateral breast gareth (3D mammographic acquisition) in the CC and MLO projections. 2-D mediolateral oblique (MLO) and craniocaudad (CC) views of both breasts were obtained. CAD: Full Field Digital Mammography with Computer Added Detection was performed. COMPARISON: Comparison is made with prior examination dated 05/21/2020 and 06/06/2018. FINDINGS: Breast Composition: The breasts are heterogeneously dense, which may obscure small masses. There are no dominant masses or suspicious calcifications. Stable small bilateral axillary lymph nodes. No other significant abnormalities are identified. There has been no significant change since the prior study. BI/SCRN MAMM (CAD)W/GARETH BILAT IMPRESSION: Stable bilateral screening mammogram. Yearly follow-up mammogram recommended. (A) ASSESSMENT CATEGORY: BIRADS Category 2: Benign. A letter regarding these results will be sent to the patient by the facility within 30 days. Approximately 10% of breast cancers are not detected by mammography. A normal mammogram should not delay biopsy of a clinically suspicious abnormality. [id number] Electronically Signed: Hans Malave MD at 13:20 EDT , Service support ,
== END ==
PROVIDERS: PCP Family Medicine; Referring Provider Student in an Organized Health Care Education/Training Program; Visit Provider Student in an Organized Health Care Education/Training Program
DX: Z12.31 Encounter for screening mammogram for malignant neoplasm of breast (principal); Z80.3 Family history of malignant neoplasm of breast
CPT/HCPCS: 77063; 77067

== ENCOUNTER → 2021-07-20 11:44 | Outpatient (CLI) | payer OTHER, SELFPAY ==
[2021-07-20 13:49] LABS: Estradiol 154.6 pg/mL; Follicle Stimulating Hormone 5.8 mIU/mL; Thyroid Stim Hormone (TSH) 1.08 uIU/mL (0.358-3.74)
[2021-07-22 02:07] LABS: DHEA Sulfate 89.3 ug/dL (57.3-279.2)
[2021-07-22 13:36] LABS: Testosterone Free 0.5 pg/mL (0.0-4.2)
== END ==
PROVIDERS: PCP Family Medicine; Visit Provider Student in an Organized Health Care Education/Training Program
DX: N95.1 Menopausal and female climacteric states (principal)
CPT/HCPCS: 36415; 82627; 82670; 83001; 83002; 84402; 84443; 82626

== ENCOUNTER 2022-07-01 11:14 | Day surgery (SDC) | payer BC, SELFPAY ==
--- NOTE | 2022-06-28 07:59 | PCM.HP.BLA ---
History and Physical Date of Admission: 07/01/22 Pre-Op History and Physical ? HPI: The patient is a 41 year old female presenting for pre-operative visit. She is scheduled for hysteroscopy, Sherlyn Ablation, for AUB on 07/01/22. Procedure discussed along with risks, benefits and complications. Other alternatives discussed for management. Consent form signed? Yes. ? ? PAST MEDICAL HISTORY PAST MEDICAL HISTORY Diagnosis Date ? Endometriosis ? ? ? PAST SURGICAL HISTORY PAST SURGICAL HISTORY Procedure Laterality Date ? SECTION HX ? ? ? EXTRACTION ERUPTED TOOTH/EXR ? ? ? LIGATE FALLOPIAN TUBE Bilateral 2017 ? Dr. Monroy- Mild Adhesions from endometriosis Posterior CDS and left ovary ? REMOVAL GALLBLADDER ? CURRENT MEDICATIONS Current Outpatient Medications Medication Sig Dispense Refill ? Biotin 2,500 mcg cap Biotin Active 2500 MCG DAILY April 05, 2018 9:59am ? ? ? No current facility-administered medications for this visit. ? ? ALLERGIES: Sulfa (Sulfonamide Antibiotics) ? PERSONAL HISTORY: SOCIAL HISTORY Social History ? Tobacco Use ? Smoking status: Former ? Smokeless tobacco: Never Vaping Use ? Vaping Use: Never used Substance Use Topics ? Alcohol use: Yes ? Drug use: Never ? FAMILY HISTORY: FAMILY HISTORY No family history on file. ? REVIEW OF SYMPTOMS: negative except as noted above PHYSICAL EXAMINATION: ? VITALS: Blood pressure 106/62, pulse 80, resp. rate 16, height 5' 3.5 (1.613 m), weight 158 lb 12.8 oz (72 kg), last menstrual period 06/09/2022. ? GENERAL: The patient is well nourished, well hydrated in no acute distress. , The patient is oriented to time, place, and person. NECK: full range of motion ? IMPRESSION: AUB ? PLAN: Hysteroscopy, Sherlyn ablation ? Pt has been counseled on risks/benefits and alternatives of surgery including but not limited to anesthesia, bleeding, infection, uterine perforation with subsequent injury to pelvic structures including bowel, bladder, ureters and vessels. Pt wishes to proceed with surgery at this time. ? EMB benign ? Consent signed. ? I have reviewed and updated past medical and surgical history, medications and allergies Amber Hagen MD Office Visit on 06/23/2022 Office Visit on 06/23/2022 Note shared with patient
[2022-07-01] VITALS (7 sets, daily range): BP systolic 105–117; BP diastolic 64–79; PULSE 73–100; RESP 16; TEMP 36.6–36.9; O2SAT 95–100; BMI 27.7
[2022-07-01 12:03] LABS: Hematocrit 41.5 % (37-47); Mean Corp Hgb Conc 33.7 g/dL (32-36); Mean Corpuscular Hgb 30.6 pg (27.0-32.0); Mean Corpuscular Volume 90.6 fL (81-99); Mean Platelet Vol. 10.4 fl (6.2-12.0); Platelet Count 255 K/mm3 (150-450); RBC Distribution Width CV 11.8 % (11.6-14.6); RBC Distribution Width SD 38.5 fl (35.1-43.9); Red Blood Count 4.58 M/mm3 (4.2-5.4); White Blood Count 6.1 K/mm3 (4.4-11.0)
[2022-07-01] MEDS: Lactated Ringers 1,000 ML 15 ML IV (12:04)
--- NOTE | 2022-07-01 13:00 | EMB_PTH ---
PATIENT: MARTHA GOMEZ [place] [facility] [place][id number] AGE/SX: 41/F ROOM: RE07/01/[address]: Dr. Amber Hernandez, MDDOB: 1980 BED: DIS: 07/01/2022 SPEC #: [id number] RECD: 07/01/22 14:32 STATUS: HOWARD KONGConchis #: [id number] ROBINSON: 07/01/22 13:[address]: Amber Hernandez DEPT: SURGICAL PATHOLOGY RECD BY: Rebecca Lam ENTERED: 07/02/22 07:52 SP TYPE: ENDOM BX/C ROSARIO DR: Dr. Cynthia Stroud MD Tissues: Endometrium, NOS Procedures: Surgery Specimen Level IV HEADER OPERATION: Hysteroscopy, D & C Sherlyn PRE-OP DIAGNOSIS: Endometriosis TISSUE SUBMITTED: Endometrial curettings MICROSCOPIC DIAGNOSIS Endometrium, biopsy: Secretory endometrium. Rare fragments of benign endocervix. AM:saul 07/05/2022 MICROSCOPIC DESCRIPTION Slides are reviewed. GROSS DESCRIPTION Received in fixative is one container labeled with the patient's name and designated endometrial curettings. The specimen consists of multiple fragments of hemorrhagic soft tissue that in aggregate measure 5 x 3 x 0.3 cm. The entire specimen is submitted in two cassettes. / SJ:saul 07/02/2022 TC:5 CPT: 62518
--- NOTE | 2022-07-01 13:54 | OP.PCM_ITS ---
Report of Operation Date of Procedure: 07/01/22 Pre-Operative Diagnosis: AUB Post-Operative Diagnosis: same Surgery/Procedure Performed:: Hysteroscopy, D&C, Sherlyn Ablation Description of Surgical Findings:: Thickened endometrium- Tubal ostia identified. Surgeon: Amber Hernandez Type of Anesthesia: MAC Specimen's removed: none Drains: none Estimated Blood Loss (mL): 5 Fluids Replaced: 600 Description of Procedure: After informed consent was obtained patient taken to the operating room she is placed in supine position she is given anesthesia simply self insert she is prepped draped normal sterile fashion. Bladder was drained prior to the start of the procedure. At this time the weighted speculum was placed the posterior fornix of the vagina then a single-tooth tenaculum was used to grasp the anterior lip of the cervix. At this time the uterus was sounded to approximately 9 cm the endocervical canal sounded to 4 cm. Next cervix was dilated in incremental fashion. Once adequate dilatation was achieved the hysteroscope was inserted using normal saline as distention medium. On hysteroscopy there were no gross abnormalities- thickened endometrium noted. Both tubal ostia were visualized. At this time sharp curettage was performed which yielded large amount of endometrial tissue. tissue will be sent to pathology for evaluation. At this time the Sherlyn device was opened. The Sherlyn was set to 5 cm. The device was activated. Prior to activation the field test was performed and cavity was intact. The device was then fired and activated for 120 seconds. Once the 120 seconds was completed the device was r emoved intact and the tenaculum was removed. Good hemostasis was appreciated. Weighted speculum was removed. Vaginal sweep was performed is negative. There were no complications. Anticipated normal postoperative course for this patient. Instrument and lap count were correct ?2. Grafts/Implants Used: none Procedure Start Time: 14:04 Procedure Stop Time: 14:15 Complications none Admit VTE Documentation VTE Present on Admission: Yes VTE Mechan Device Prophylaxis: SCD's VTE Pharm Prophylaxis ordered?: No
--- NOTE | 2022-07-01 13:54 | DCINST_ITS ---
Discharge Instructions Procedure D&C Diet Discharge Diet: No restrictions Activity May resume sexual activity in: 1 week Dressing / Incision Call your doctor if you observe: Fever of 101 or Higher, Inability to urinate, Using more than 1 pad per hour and Uncontrolled pain Follow Up Care Please Follow Up With: Amber Hernandez MD When: 1-2 weeks post OP if you need an appointment please call [phone] Test Results: Test results from this visit will be discussed in further detail at your follow- up appointment, if applicable. Discharge Plan Admission Attending Provider: Amber Hernandez Primary Care Provider: Cynthia Stroud Discharge Orders/Prescriptions Prescriptions: No Action biotin 1 mg capsule 1 mg PO DAILY Referrals / Follow Up: Cynthia Stroud MD [Primary Care Provider] - Disposition Disposition (needs filled in before D/C Order can be placed): Home, Self Care
[2022-07-01] MEDS: HYDROcodone Bitartrate/Apap 5/325 Tablet PO (15:18)
== END 2022-07-01 15:25 | disposition home or self-care (01) ==
LOC: SDC 11:16 → AC 11:17
PROVIDERS: PCP Family Medicine; Visit Provider Obstetrics & Gynecology
PROC: 0U5B8ZZ Destruction of Endometrium, Via Natural or Artificial Opening Endoscopic (ICD-10-PCS; CPT 58558; principal; 2022-07-01 12:45)
DX: N93.9 Abnormal uterine and vaginal bleeding, unspecified (principal); Z90.79 Acquired absence of other genital organ(s); Z90.49 Acquired absence of other specified parts of digestive tract; Z87.891 Personal history of nicotine dependence
CPT/HCPCS: 58563; 00952; 85027; 88305; J7120; J2405

== ENCOUNTER → 2025-02-22 | Outpatient (CLI) | payer BC, SELFPAY ==
[2025-02-22 10:59] LABS: Anion Gap 11 (5-15); BUN 13 mg/dL (4-19); BUN/Creat Ratio 21.8 RATIO (10-20); Calcium,Total 8.9 mg/dL (7.6-11.0); Carbon Dioxide 23.1 mmol/L (21.0-32.0); Chloride 105 mmol/L (98-108); Cholesterol 230 mg/dL (<=200); Creatinine, Serum 0.61 mg/dL (0.70-1.20); EST Glomerular Filtration Rate 112 (>60); Glucose 98 mg/dL (70-99); High Density Lipoprotein 53 mg/dL; Low Density Lipoprotein Calc. 159 mg/dL; Potassium 4.2 mmol/L (3.3-5.1); Sodium Level 139 mmol/L (133-145); Thyroid Stim Hormone (TSH) 0.807 uIU/mL (0.300-4.200); Triglycerides 88 mg/dL; Very Low Density Lipoprotein 18 mg/dL (5-40); Vitamin B12 590 pg/mL (180-914); Vitamin D,25 Hydroxy 38.3 ng/mL (30-100); cholesterol:hdl ratio screen 4.31
== END | disposition home or self-care (01) ==
LOC: MFPLAB 08:05
PROVIDERS: PCP Family Medicine; Referring Provider Family Medicine; Visit Provider Family Medicine
DX: Z00.00 Encounter for general adult medical examination without abnormal findings (principal)
CPT/HCPCS: 36415; 80048; 80061; 82306; 82607; 84443

== ENCOUNTER → 2025-03-13 | Outpatient (CLI) | payer BC, SELFPAY ==
--- NOTE | 2025-03-13 10:44 | MRI_ITS ---
PROCEDURE: LOWER EXT JOINT ONLY (ROUTINE) 03/13/2025 REASON FOR EXAM: PLANTAR FASCIITIS TECHNIQUE: LOWER EXT JOINT ONLY (ROUTINE) Multiplanar and multisequence images were obtained without IV contrast administration. COMPARISON: COMPARISON : Right foot series of 02/05/2025. FINDINGS: Moderate inferior calcaneal spurring is seen. Normal contour of the Achilles tendon is noted. No ankle joint effusion is seen. Thickening and inhomogeneous signal at the proximal plantar fascia is seen, with mild adjacent edema, consistent with chronic and acute plantar fasciitis. A very mild degree of adjacent edema is also seen of the inferior calcaneus, as well. No joint effusion is seen. No other area of abnormal osseous signal is noted. No significant arthritic process is seen. No tendon pathology is seen. MRI/Lower Ext Joint Only (Routine) IMPRESSION: Plantar fasciitis Reading Location: [place] [id number]
== END | disposition home or self-care (01) ==
LOC: OPMRI 10:35
PROVIDERS: PCP Family Medicine; Referring Provider Podiatrist; Visit Provider Podiatrist
DX: M72.2 Plantar fascial fibromatosis (principal)
CPT/HCPCS: 73721